=== PATIENT | male | born 1945 | race Caucasian/White ===

== ENCOUNTER 2020-11-09 12:24 | Outpatient (CLI) | payer OTHER, SELFPAY ==
--- NOTE | 2020-11-09 12:34 | USCV_ITS ---
Tee Luis Age: 75 Gender: M : 1945 Exam Date: 11/09/2020 13:03 Ordering Phys: NOT ON FILE, DOCTOR XX Technologist: Roselia Borden [place] [facility] [place]: History of Cabg BP: 141 / 72 HR: 81 Rhythm: Sinus Technical Quality: Fair MEASUREMENTS (Male / Female) Normal Values 2D ECHO LV Diastolic Diameter PLAX 5.4 cm 4.2 - 5.9 / 3.9 - 5.3 cm LV Systolic Diameter PLAX 2.9 cm LV Chamber Size 4.8 cm IVS Diastolic Thickness 1.0 cm 0.6 - 1.0 / 0.6 - 0.9 cm IVS Systolic Thickness 1.6 cm LVPW Diastolic Thickness 1.3 cm 0.6 - 1.0 / 0.6 - 0.9 cm LVPW Systolic Thickness 1.7 cm RV Chamber Size 2.9 cm LVOT Diameter 2.1 cm LV Ejection Fraction 2D Teich 77.7 % LV Ejection Fraction MOD 2C 27.5 % LV Ejection Fraction 2C AL 24.1 % LA Diameter 4.0 cm LA Width 3.6 cm LA Height 5.0 cm RA Width 3.3 cm RA Height 4.7 cm Aorta at Sinotubular Diameter 3.8 cm M-MODE LV Diastolic Diameter MM 6.8 cm 4.2 - 5.9 / 3.9 - 5.3 cm LV Systolic Diameter MM 4.9 cm LV Ejection Fraction MM Teich 53.6 % IVS Diastolic Thickness MM 1.1 cm 0.6 - 1.0 / 0.6 - 0.9 cm IVS Systolic Thickness MM 1.3 cm LVPW Diastolic Thickness MM 1.5 cm 0.6 - 1.0 / 0.6 - 0.9 cm LVPW Systolic Thickness MM 2.0 cm Aortic Annulus Diameter 4.2 cm LA Ao Ratio MM 1.0 MV E Point Septal Separation 1.0 cm DOPPLER AV Peak Velocity 161.0 cm/s LVOT Peak Velocity 81.0 cm/s AV Area Cont Eq vti 2.3 cm squared AV Area Cont Eq pk 1.7 cm squared MV Area PHT 8.1 cm squared Mitral E to A Ratio 1.1 MV E' Velocity 139.0 cm/s Mitral E to LV E' Septal Ratio 14.7 TR Peak Velocity 251.3 cm/s TR Peak Gradient 25.3 mmHg TR Mean Velocity 190.1 cm/s TR Mean Gradient 15.9 mmHg TR Velocity Time Integral 67.6 cm TV Peak E Velocity 68.0 cm/s Right Atrial Pressure 3.0 mmHg Pulmonary Artery Systolic Pressu 28.3 mmHg PV Peak Velocity 116.7 cm/s RV Acceleration Time 0.1 s RV Ejection Time 0.3 s RV AcT/ET 0.4 FINDINGS Left Ventricle Left ventricle is mildly dilated. LV systolic function is mildly reduced with EF of 40-45%. Mild global hypokinesis is seen. Septal motion is consistent with prior surgery. Right Ventricle The right ventricle is normal in size and function. Right Atrium The right atrium is dilated Left Atrium The left atrium is dilated. Interatrial septum is aneurysmal Mitral Valve Structurally normal mitral valve without significant stenosis or prolapse. There is no mitral regurgitation. Aortic Valve Aortic valve is mildly thickened without significant stenosis. There is mild aortic regurgitation. Tricuspid Valve Structurally normal tricuspid valve without significant stenosis or regurgitation. Insufficient TR jet to calculate RVSP Pulmonic Valve Structurally normal pulmonic valve without significant stenosis. There is no pulmonic regurgitation. Pericardium Normal pericardium without effusion. Aorta Normal ascending aorta dimension. CONCLUSIONS LV systolic function is mildly reduced with EF of 40-45% Biatrial enlargement Mild aortic regurgitation Interatrial septum is aneurysmal No comparison studies are available. Jona Kincaid MD (Electronically Signed) Final Date: 11 November 2020 14:16 S
== END 2020-11-09 12:25 | disposition home or self-care (01) ==
LOC: RAD 12:29
PROVIDERS: Visit Provider Nurse Practitioner Family
DX: Z95.1 Presence of aortocoronary bypass graft (principal); I51.7 Cardiomegaly; I35.1 Nonrheumatic aortic (valve) insufficiency; I25.3 Aneurysm of heart
CPT/HCPCS: 93306